=== PATIENT | female | born 1975 | race Asian ===

== ENCOUNTER 2019-08-31 07:07 | Day surgery (SDC) | payer BC ==
[~2019-08-31] VITALS: Ht 157.5 cm; Wt 69.1 kg
[2019-08-31] VITALS (16 sets, daily range): BP systolic 104–138; BP diastolic 70–97
[2019-08-31] MEDS ORDERED: ONDA4TAB6 PO (08:00)
[2019-08-31] MEDS ORDERED: ANAS1TAB10 PO (08:00)
[2019-08-31] MEDS ORDERED: DEXA4TAB67 PO (08:00)
[2019-08-31] MEDS ORDERED: OMEP40CA13 PO (08:00)
[2019-08-31 08:25] LABS: BASOPHILS % (AUTO) 0.2 % (0-1); EOSINOPHILS % (AUTO) 0 % (0-6); HEMATOCRIT 41.3 % (35.0-45.0); HEMOGLOBIN 13.9 g/dl (12.0-16.0); LYMPHOCYTES # (AUTO) 0.4 X10'3 (1.1-4.8); LYMPHOCYTES % (AUTO) 4.3 % (21-51); MEAN CORPUSCULAR HEMOGLOBIN 29.7 PG (27.0-31.0); MEAN CORPUSCULAR HGB CONC 33.6 g/dL (33.0-36.5); MEAN CORPUSCULAR VOLUME 88.4 FL (78-98); MEAN PLATELET VOLUME 6.7 FL (7.4-10.4); MONOCYTES # (AUTO) 0.3 X10'3 (0-0.9); NEUTROPHILS # (AUTO) 8.2 X10'3 (1.8-7.7); NEUTROPHILS % (AUTO) 92.5 % (42-75); PLATELET COUNT 278 X10'3 (140-440); RED BLOOD COUNT 4.67 X10'6 (4.20-5.60); RED CELL DISTRIBUTION WIDTH 13.5 % (11.5-14.5); WHITE BLOOD COUNT 8.9 X10'3 (4.5-11.0)
[2019-08-31] MEDS ORDERED: midazolam 2 mg/2 ml injection ONE ×2 (08:35→09:27)
[2019-08-31] MEDS ORDERED: fentaNYL/PF 50MCG/1 ML 2ML syringe ONE ×2 (08:35→09:28)
[2019-08-31] MEDS ORDERED: HYDROcodone/acetaminophen 5mg/325mg tablet PO PRN (10:05)
== END 2019-08-31 11:00 | disposition home or self-care (01) ==
LOC: SSTAY O 07:07
PROVIDERS: ATTEND Radiology Vascular & Interventional Radiology
DX: M89.9 Disorder of bone, unspecified (principal); R93.89 Abnormal findings on diagnostic imaging of other specified body structures; C79.31 Secondary malignant neoplasm of brain; Z85.3 Personal history of malignant neoplasm of breast; C78.00 Secondary malignant neoplasm of unspecified lung
CPT/HCPCS: 20220; 77012; 85025; 85610; J2250; J3010; 99152; 99153